=== PATIENT | male | born 1955 | race Caucasian/White ===

== ENCOUNTER 2017-03-27 08:58 | Emergency (ER) | payer BC ==
[2017-03-27] MEDS ORDERED: DIAZEPAM 5 MG TAB PO STA (09:21)
[2017-03-27] MEDS ORDERED: KETOROLAC 60 MG/2 ML VIAL IM STA (09:21)
[2017-03-27] MEDS ORDERED: HYDROcodone/APAP 5-325MG 1 EACH TAB PO STA (09:21)
--- NOTE | 2017-03-27 09:24 | ED ---
Back Pain HPI - General Chief Complaint: Back Pain/Injury Stated Complaint: back pain Time Seen by Provider: 03/27/17 09:06 Source: patient, RN notes reviewed Limitations: no limitations - History of Present Illness Initial Comments: Patient is a 61-year-old male presents emergency room for evaluation of low back pain. Patient states he used to have a history of chronic low back pain. Patient states he hasn't seen his back doctor in 4 years. Patient states on Friday he bent down to tow picker his 20 pound cat and felt a pop in his lower back. Patient states he began having pain ever since. Patient states been taking Excedrin with no relief of symptoms. Patient states he could not get an appointment with his back doctor yesterday. Patient states he is still continuing to have pain so he thought he should be evaluated. Patient states he is having pain in his mid lower back. Patient states the pain radiates down both legs. Patient denies saddle anesthesia. Patient denies paresthesias. Patient denies urinary or fecal incontinence. - Related Data Home Medications Medication Instructions Recorded Confirmed Albuterol Inhaler [Ventolin Hfa 1 - 2 puff INHALATION RT-Q6H PRN 03/27/17 Inhaler] Montelukast Sodium [Singulair] 10 mg PO DAILY 03/27/17 03/27/17 Multivitamins, Thera [Multivitamin 1 tab PO DAILY 03/27/17 03/27/17 (formulary)] Previous Rx's Medication Instructions Recorded Diazepam [Valium] 5 mg PO BID PRN #10 tab 03/27/17 HYDROcodone/APAP 5-325MG [[place] 1 tab PO Q6HR PRN #12 tab 03/27/17 5-325] predniSONE 50 mg PO DAILY #4 tab 03/27/17 Allergies Allergy/AdvReac Type Severity Reaction Status Date / Time Penicillins Allergy Unknown Verified 03/27/17 09:22 Review of Systems ROS Statement: Those systems with pertinent positive or pertinent negative responses have been documented in the HPI. ROS Other: All systems not noted in ROS Statement are negative. Past Medical History Past Medical History: Asthma Additional Past Medical History / Comment(s): back pain, kidney stones History of Any Multi-Drug Resistant Organisms: None Reported Additional Past Surgical History / Comment(s): kidney stone removal Past Psychological History: No Psychological Hx Reported Smoking Status: Former smoker Past Alcohol Use History: Occasional Past Drug Use History: None Reported General Exam - General Exam Comments Initial Comments: Standing up in exam room, uncomfortable secondary to pain. Limitations: no limitations General appearance: alert, in no apparent distress Head exam: Present: atraumatic, normocephalic, normal inspection Eye exam: Present: normal appearance ENT exam: Present: normal exam Neck exam: Present: normal inspection Respiratory exam: Present: normal lung sounds bilaterally. Absent: respiratory distress Cardiovascular Exam: Present: regular rate, normal rhythm, normal heart sounds Back exam: Present: normal inspection, vertebral tenderness (Lumbosacral spine) Neurological exam: Present: alert, oriented X3, CN II-XII intact, normal gait Psychiatric exam: Present: normal affect, normal mood Skin exam: Present: warm, dry, intact, normal color. Absent: rash Course Vital Signs 03/27/17 03/27/17 08:59 11:05 Temperature 98.0 F 98.2 F Pulse Rate 90 99 Respiratory 20 16 Rate Blood Pressure 138/77 149/98 O2 Sat by Pulse 99 96 Oximetry Medical Decision Making - Medical Decision Making Patient is a 61-year-old male presents emergency room for evaluation of lower back pain. X-ray shows no acute findings. Patient given pain medications and advised follow-up with primary care provider for possible MRI if symptoms are not improving. Patient has no neuro deficits. Patient states he understands everything that was discussed with him. Return parameters discussed. Case discussed Dr. Chowdhury. - Radiology Data Radiology results: report reviewed, image reviewed Disposition Clinical Impression: Acute low back pain Disposition: HOME SELF-CARE Condition: Good Instructions: Acute Low Back Pain (ED) Additional Instructions: Begin taking prednisone tomorrow. Take pain medications as needed for pain. Warm moist heat. Please follow up with primary care provider or logging specialist for further evaluation. If any new symptom arises or symptoms worsen , return to ER as soon as possible. Prescriptions: HYDROcodone/APAP 5-325MG [[place] 5-325] 1 tab PO Q6HR PRN #12 tab PRN Reason: Pain Diazepam [Valium] 5 mg PO BID PRN #10 tab PRN Reason: Pain predniSONE 50 mg PO DAILY #4 tab Referrals: None,Stated [REFERRING] - 1-2 days Time of Disposition: 10:31
--- NOTE | 2017-03-27 10:13 | XR ---
EXAMINATION TYPE: XR lumbosacral spine min 4V DATE OF EXAM ORDERED: 03/27/2017 HISTORY: Pain. COMPARISON: None. FINDINGS: There is mild wedging of the T1 vertebral body which appears chronic. Vertebral body heigh t and alignment otherwise maintained. There is no spondylolysis or spondylolisthesis. Disc spaces are well-maintained with the exception of L1 to. There is mild hypertrophic spondylosis at L1-2 and L2-3 . The facets are reasonably well-maintained. The pedicles are intact. IMPRESSION: 1. NO ACUTE OSSEOUS LESION. 2. MINIMAL DEGENERATIVE CHANGE. 3. MILD WEDGING OF THE T1 VERTEBRAL BODY WHICH APPEARS CHRONIC.
[2017-03-27] MEDS ORDERED: methylPREDNISolone SOD SUCCI 125 MG/2 ML VIAL IM ONE (10:37)
[2017-03-27 11:06] VITALS: BP 149/98; PULSE 99; RESP 16; TEMP 98.2
== END 2017-03-27 11:15 | disposition home or self-care (01) ==
LOC: EC 08:58
DX: M54.5 Low back pain (principal); M79.604 Pain in right leg; M79.605 Pain in left leg; J45.909 Unspecified asthma, uncomplicated; Z87.891 Personal history of nicotine dependence; Z79.899 Other long term (current) drug therapy; Z88.0 Allergy status to penicillin; X50.9XXA Other and unspecified overexertion or strenuous movements or postures, initial encounter; Y93.89 Activity, other specified
CPT/HCPCS: 72110; 99283; 96372 ×2; J2930; J1885

== ENCOUNTER 2019-03-10 10:04 | Day surgery (SDC) | payer BC ==
[2019-03-08 12:16] VITALS: BMI 23.7
[~2019-03-10 10:04] MED LIST: LACTATED RINGERS 1,000 ML IV SCH
[2019-03-10 10:27] VITALS: TEMP 96
[2019-03-10] MEDS ORDERED: LIDOCAINE 1% 20 ML VIAL (10MG/ML) FOR IV START INTRADERMA ONE (10:34)
--- NOTE | 2019-03-10 10:54 | P.GSHP ---
History of Present Illness H&P Date: 03/10/19 CHIEF COMPLAINT: Colon screen HISTORY OF PRESENT ILLNESS: The patient is a 63-year-old male who presents for colon screen. Lower endoscopy was offered for further evaluation and management. PAST MEDICAL HISTORY: Please see list. PAST SURGICAL HISTORY: Please see list. MEDICATIONS: Please see list. ALLERGIES: Please see list. SOCIAL HISTORY: No illicit drug use FAMILY HISTORY: No reports of Crohn disease or ulcerative colitis. REVIEW OF ORGAN SYSTEMS: CONSTITUTIONAL: No reports of fevers or chills. PHYSICAL EXAM: VITAL SIGNS: Stable GENERAL: Well-developed pleasant in no acute distress. HEENT: No scleral icterus. Extraocular movements grossly intact. Moist buccal mucosa. NECK: Supple without lymphadenopathy. CHEST: Unlabored respirations. Equal bilateral excursions. CARDIOVASCULAR: Regular rate and rhythm. Distal 2+ pulses. ABDOMEN: Soft, nontender, nondistended. MUSCULOSKELETAL: No clubbing, cyanosis, or edema. ASSESSMENT: 1. Colon screen. PLAN: 1. Recommend proceeding with a lower endoscopy Past Medical History Past Medical History: Asthma Additional Past Medical History / Comment(s): back pain, kidney stones, History of Any Multi-Drug Resistant Organisms: None Reported Additional Past Surgical History / Comment(s): kidney stone removal Past Anesthesia/Blood Transfusion Reactions: No Reported Reaction Smoking Status: Former smoker - Past Family History Father Family Medical History: Cancer Additional Family Medical History / Comment(s): STOMACH CANCER Mother Family Medical History: Cancer Additional Family Medical History / Comment(s): LIVER CANCER Medications and Allergies Home Medications Medication Instructions Recorded Confirmed Type Montelukast Sodium [Singulair] 10 mg PO DAILY 03/27/17 03/10/19 History Multivitamins, Thera [Multivitamin 1 tab PO DAILY 03/27/17 03/08/19 History (formulary)] Budesonide-Formot 160-4.5 Mcg 2 puff INHALATION DAILY 03/08/19 03/08/19 History [Symbicort 160-4.5 Mcg Inhaler] Allergies Allergy/AdvReac Type Severity Reaction Status Date / Time Penicillins Allergy Unknown Verified 03/08/19 11:51 Childhood Surgical - Exam Vital Signs Temp Pulse Resp BP Pulse Ox 96 F L 96 18 138/83 98 03/10/19 10:26 03/10/19 10:26 03/10/19 10:26 03/10/19 10:26 03/10/19 10:26
[2019-03-10] MEDS ORDERED: PROPOFOL 10 MG/ML 20 ML VIAL IV ONE (11:36)
--- NOTE | 2019-03-10 11:58 | P.PCN ---
Date of Procedure: 03/10/19 Description of Procedure: PREOPERATIVE DIAGNOSIS: Colonoscopy screening, first POSTOPERATIVE DIAGNOSIS: Colonoscopy screening, first Diverticulosis, scattered. External hemorrhoids, grade 2 OPERATION: Colonoscopy to the ileocecal valve and appendiceal orifice. SURGEON: Chrissy Smith MD. ANESTHESIA: MAC. INDICATIONS: The patient is a 63-year-old male who presents for colonoscopy screening. This is his first screening. Benefits and risks were described and informed consent was obtained. DESCRIPTION OF PROCEDURE: The patient had undergone Gatorade, MiraLAX and Dulcolax prep. He had been brought into the operating room and laid in the left lateral decubitus position. After adequate intravenous sedation, the rectum was examined with 2% lidocaine jelly. No external hemorrhoids were encountered. The rectal tone was within normal limits. No lesions were palpated in the rectal vault. The prostate was smooth without abnormalities. An Olympus colonoscope was advanced until the ileocecal valve and appendiceal orifice were clearly viewed. The prep was fair. The scope was removed with visualization of each mucosal fold. Scattered diverticulosis was encountered. No colonic polyps were found. No evidence of focal colitis was found. Retroflexion of the scope demonstrated grade 2 internal hemorrhoids without active bleeding or inflammation. The colon was desufflated. The patient had tolerated the procedure well. Withdrawal time was over 6 minutes. FINDINGS: Aronchick preparation quality scale 2 (1-5) Internal hemorrhoids, grade 2 External prolapsed hemorrhoids, grade 2 No arteriovenous malformations. No adenomatous polyps. No focal colitis. Sigmoid diverticulosis RECOMMENDATIONS: Lower endoscopy in 10 years, 2028 Plan - Discharge Summary Discharge Rx Participant: No New Discharge Prescriptions: No Action Multivitamins, Thera [Multivitamin (formulary)] 1 tab PO DAILY Montelukast Sodium [Singulair] 10 mg PO DAILY Budesonide-Formot 160-4.5 Mcg [Symbicort 160-4.5 Mcg Inhaler] 2 puff INHALATION DAILY Discharge Medication List Montelukast Sodium [Singulair] 10 mg PO DAILY 03/27/17 [History] Multivitamins, Thera [Multivitamin (formulary)] 1 tab PO DAILY 03/27/17 [His tory] Budesonide-Formot 160-4.5 Mcg [Symbicort 160-4.5 Mcg Inhaler] 2 puff INHALATION DAILY 03/08/19 [History] Follow up Appointment(s)/Referral(s): Chrissy Smith MD [STAFF PHYSICIAN] - 2 Weeks Patient Instructions/Handouts: Diverticulosis Diet (GEN), Diverticulosis (ED) Activity/Diet/Wound Care/Special Instructions: Repeat colonoscopy in 10 years or [place] Discharge Disposition: HOME SELF-CARE
[2019-03-10 12:04] VITALS: RESP 16
[2019-03-10 12:16] VITALS: BP 137/87
[2019-03-10 12:18] VITALS: PULSE 71
== END 2019-03-10 12:26 | disposition home or self-care (01) ==
LOC: ORWHC2ENDO 10:04
PROVIDERS: ATTEND Surgery Plastic and Reconstructive Surgery
DX: Z12.11 Encounter for screening for malignant neoplasm of colon (principal); J45.909 Unspecified asthma, uncomplicated; K64.4 Residual hemorrhoidal skin tags; K64.8 Other hemorrhoids; Z87.442 Personal history of urinary calculi; Z87.891 Personal history of nicotine dependence; Z88.0 Allergy status to penicillin; Z79.51 Long term (current) use of inhaled steroids; Z79.899 Other long term (current) drug therapy; K57.30 Diverticulosis of large intestine without perforation or abscess without bleeding
CPT/HCPCS: J2704; G0121

== ENCOUNTER → 2020-07-14 | Outpatient (CLI) | payer BC ==
--- NOTE | 2020-07-14 17:37 | XR ---
EXAMINATION TYPE: XR chest 2V DATE OF EXAM: 07/14/2020 COMPARISON: NONE TECHNIQUE: PA and lateral views submitted. HISTORY: Pain FINDINGS: The lungs are clear and there is no pneumothorax, pleural effusion, or focal pneumonia. Heart size normal. No overt failure. IMPRESSION: 1. No acute process.
--- NOTE | 2020-07-14 17:39 | XR ---
EXAMINATION TYPE: XR Hip Bilateral Complete DATE OF EXAM: 07/14/2020 COMPARISON: NONE HISTORY: Pain TECHNIQUE: 2 views submitted FINDINGS: There is no evidence of erosive change or acute fracture. Diffuse osteopenia. Moderate concentric tracy rowing the joint space. Hypertrophic change of the acetabulum. No acute fracture or dislocation. IMPRESSION: 1. Arthropathy correlate for femoral acetabular impingement.
--- NOTE | 2020-07-14 17:43 | XR ---
EXAM TYPE: LUMBAR SPINE X RAY SERIES COMPARISON: 07/14/2020 HISTORY: Pain TECHNIQUE: 4 views are submitted. FINDINGS: Alignment is anatomic. The pedicles are intact. The transverse processes are intact. There is no s pondylolysis or spondylolisthesis. Diffuse osteopenia noted. Multilevel hypertrophic and degenerativ e changes seen. Slight retrolisthesis of L4 relative to L5. 5 mm lower pole right renal calculus susp ected. IMPRESSION: 1. Multilevel hypertrophic and degenerative change similar to the prior exam. Retrolisthesis of L4 re lative to L5 stable. 2. Correlate for right renal calculus..
== END | disposition home or self-care (01) ==
LOC: RAD 15:32
PROVIDERS: ATTEND Family Medicine
DX: M43.16 Spondylolisthesis, lumbar region (principal); M47.817 Spondylosis without myelopathy or radiculopathy, lumbosacral region; M16.0 Bilateral primary osteoarthritis of hip; R05 Cough
CPT/HCPCS: 71046; 72110; 73521

== ENCOUNTER → 2020-08-02 | Outpatient (CLI) | payer BC ==
--- NOTE | 2020-08-02 09:38 | CT ---
EXAMINATION TYPE: CT sinus wo con DATE OF EXAM: 08/02/2020 COMPARISON: NONE HISTORY: Chronic sinusitis and bilateral nasal polyps per order. Nasal blockage for [address] DLP: 602 mGycm. Automated Exposure Control for Dose Reduction was Utilized. TECHNIQUE: CT scan of the sinuses is performed without contrast, axial images are obtained, coronal r eformatted images are also reviewed. FINDINGS: Moderate size air-fluid level left maxillary sinus. Moderate mucosal thickening in the righ t maxillary sinus with some hyperdense fluid material. Small to moderate-sized air-fluid level right sphenoid sinus. Completely opacified left sphenoid sinu s with some medial wall thickening and sclerosis. Nearly completely opacified bilateral ethmoid sinuses without bony destruction. Nearly completely opacified right frontal sinus with hyperdense material. Mild to moderate mucosal th ickening left frontal sinus with patchy fluid signal. Hyperdense material likely reflects chronic retained secretions, fungal infection felt less likely. The ostiomeatal complex is occluded bilaterally. Visualized portion of mastoid air cells show no abnormal opacification. The globes are intact bilate rally. IMPRESSION: Significant acute on chronic paranasal pansinusitis as detailed above.
== END | disposition home or self-care (01) ==
LOC: RADCTMAIN 09:10
PROVIDERS: ATTEND Otolaryngology
DX: J01.40 Acute pansinusitis, unspecified (principal); J32.4 Chronic pansinusitis; Z88.0 Allergy status to penicillin
CPT/HCPCS: 70486

== ENCOUNTER 2020-09-13 06:15 | Day surgery (SDC) | payer BC ==
[2020-09-12 09:02] VITALS: BMI 23.1
[~2020-09-13 06:15] MED LIST changes: +CLINDAMYCIN 600 MG in DEXTROSE 5% IN WATER 50 ML IVPB PRN; +DEXAMETHASONE SOD PHOSPHATE 4 MG/ML 1 ML VIAL IV ONE; +DEXAMETHASONE SOD PHOSPHATE 4 MG/ML 1 ML VIAL IV PRN; +FAMOTIDINE 20 MG/2 ML VIAL IV PRN; +ONDANSETRON 4 MG/2 ML VIAL IVP ONE; +ONDANSETRON 4 MG/2 ML VIAL IVP PRN
[2020-09-13] MEDS: OXYMETAZOLINE 0.05% NASL SPRAY 1 SPRAY BOTTLE NASAL PRN ×5 (06:50→07:12)
[2020-09-13 07:02] LABS: Glucose,Whole Blood 90 mg/dL (75-99)
[2020-09-13] MEDS ORDERED: HYDROCORTISONE SUCCINATE 100 MG/2 ML VIAL IVP ONE (07:14)
[2020-09-13] MEDS ORDERED: MIDAZOLAM 2 MG/2 ML VIAL IVP ONE (07:18)
[2020-09-13] MEDS ORDERED: DEXAMETHASONE SOD PHOSPHATE 10 MG/ML 1 ML VIAL ONE (07:21)
[2020-09-13] MEDS ORDERED: SUCCINYLCHOLINE CHLORIDE VIAL 200 MG/10 ML VIAL IV ONE (07:21)
[2020-09-13] MEDS ORDERED: LIDOCAINE 1% INJ 10MG/ML (20 ML MDV) ONE (07:21)
[2020-09-13] MEDS ORDERED: PROPOFOL 10 MG/ML 20 ML VIAL IV ONE (07:21)
[2020-09-13] MEDS ORDERED: fentaNYL (PF) 50 MCG/ML 2 ML AMP ONE (07:21)
[2020-09-13] MEDS ORDERED: MIDAZOLAM 2 MG/2 ML VIAL ONE (07:21)
[2020-09-13] MEDS ORDERED: LIDOCAINE 1%-EPI 1:100,000 20 ML VIAL SQ ONE ×2 (07:49→08:33)
[2020-09-13] MEDS ORDERED: BACITRACIN ZINC 500 UNIT/GM OINT 28.4 GM TUBE TOPICAL ONE (08:39)
--- NOTE | 2020-09-13 08:45 | P.OP ---
Date of Procedure: 09/13/20 Preoperative Diagnosis: Deviated nasal septum Inferior turbinate hypertrophy Chronic sinusitis Sinonasal polyposis Postoperative Diagnosis: Same Procedure(s) Performed: Septum plasty Outfracture and submucous resection inferior turbinates Bilateral endoscopic sinus surgery including bilateral maxillary antrostomy with removal of tissue from maxillary sinuses bilateral anterior and posterior ethmoidectomy,, bilateral frontal sinusotomy and sphenoidotomy all with exploration and removal of tissue Anesthesia: PIERRE Surgeon: Mark Guevara Estimated Blood Loss (ml): 10 Pathology: other (Nasal septal bone and cartilage sinus contents) Condition: stable Disposition: PACU Indications for Procedure: This 65-year-old white male who has chronic nasal airway obstruction and anosmia with chronic sinusitis and polyps noted on physical exam and on CT Operative Findings: Nasoseptal deviation with inferior turbinate hypertrophy bilaterally. Diffuse sinonasal polyposis throughout the maxillary and ethmoid sinuses with milder polyps in the frontal and sphenoid sinuses Description of Procedure: The patient was brought into the operative suite and placed in a supine position. The patient underwent induction of general anesthesia with oral endotracheal intubation without difficulty. The patient was prepped and draped in the usual aseptic fashion with the orbits in the operating field for monitoring to the case and the computed tomography scan was on the computer screen for review throughout the case. 1% lidocaine with 1 :100,000 epinephrine was infused submucosally into both sides of the nasal septum as well as the lateral nasal wall and anterior tips of the middle turbinates. While this was taking vasoconstrictive effect the inferior turbinates were infractured with [place] elevator and partial submucous resection of the inferior turbinates was performed with a portion of the submucosal soft tissue and the inferior turbinate bone removed with Coblation device. The inferior turbinates were then outfractured with the [place] elevator. A left hemitransfixion incision was then made with the mucoperichondrial and mucoperiosteal flap on the left elevated. The bony cartilaginous junction was disarticulated and the mucoperiosteal flap on the right was elevated. Bony nasal septal deformities were removed with Kaitlynn forceps and an inferior cartilaginous strip was removed leaving a full 1.5 cm caudal strut. Checking intranasally this corrected the nasoseptal deformities and the hemitransfixion incision was closed with a running 4-0 chromic suture. Full 0 endoscopic examination is performed bilaterally. Beginning on the left, the middle turbinate was medialized. The maxillary ostium was located with a ballpoint probe and an infundibulotomy was performed followed by uncinectomy. Gross polyps were debrided with the microdebrider .The maxillary antrostomy was enlarged at the expense of the anterior and posterior fontanelle taking care anteriorly not to injure the lacrimal bone. The maxillary sinus was evaluated with 30 and 70 endoscope .[Abnormal appearing tissue was removed from the maxillary sinus with microdebrider and giraffe forceps.]. Anterior and posterior ethmoidectomy were then performed from anterior to posterior to the level of the skull base. The roof of the anterior ethmoid air cells were then cleaned from posterior to anterior using up-biting Blakesley forceps. Frontal sinusotomy of the frontal sinus was then performed with up-biting Blakesley forceps curved suction were used. The frontal sinus was then explored with 30 endoscope.[Abnormal tissue was removed from the frontal sinus including polyps]. Sphenoidotomy was then performed with straight suction and straight Blakesley forceps. The sphenoid sinus was then explored with 0 endoscope.[Abnormal tissue was removed from the sphenoid sinus occluding polyps]. Attention was then turned to the right where the procedures were followed as they had been on the left. [Standard and firm Nasopore nasal dressing was placed in the middle meatus bilaterally under direct visualization]. Bilateral Teresa airway splints coated with bacitracin ointment were placed and sutured transseptally with a 4-0 nylon suture. The patient was suctioned in oral gastric fashion and was allowed to emerge from general anesthesia having tolerated procedure well and was extubated in the operating suite and transferred to the postoperative recovery area in satisfactory condition.
[2020-09-13] MEDS: LABETALOL SYRINGE 5 MG/ML IVP ONE ×2 (08:55→09:06)
[2020-09-13 08:58] VITALS: TEMP 97.6
[2020-09-13] MEDS: HYDROmorphone 0.5 MG/0.5 ML SYRINGE IVP PRN ×2 (09:14→09:36)
[2020-09-13] MEDS ORDERED: LACTATED RINGERS 1,000 ML IV ONE (09:17)
[2020-09-13 09:33] VITALS: RESP 16
[2020-09-13] MEDS ORDERED: HYDROcodone/APAP 5-325MG 1 EACH TAB ONE (10:36)
[2020-09-13] MEDS ORDERED: HYDROcodone/APAP 5-325MG 1 EACH TAB PO ONE (10:45)
[2020-09-13 11:40] VITALS: BP 138/75; PULSE 63
== END 2020-09-13 11:41 | disposition home or self-care (01) ==
LOC: OR 06:15
PROVIDERS: ATTEND Otolaryngology
DX: J32.9 Chronic sinusitis, unspecified (principal); J34.2 Deviated nasal septum; J34.3 Hypertrophy of nasal turbinates; J33.8 Other polyp of sinus; J45.909 Unspecified asthma, uncomplicated; Z88.0 Allergy status to penicillin; Z79.899 Other long term (current) drug therapy; Z79.51 Long term (current) use of inhaled steroids; Z87.442 Personal history of urinary calculi; Z79.52 Long term (current) use of systemic steroids; Z98.890 Other specified postprocedural states; Z87.891 Personal history of nicotine dependence; Z82.61 Family history of arthritis; Z82.5 Family history of asthma and other chronic lower respiratory diseases
CPT/HCPCS: 88305; 88300; 30520; 30802; 31267; 31259; 31253; J2250; J0330; J1100 ×2; J1720; J2405; J2001; J3010; J2704; J1170

== ENCOUNTER → 2021-08-03 | Outpatient (CLI) | payer BC ==
--- NOTE | 2021-08-03 12:54 | XR ---
EXAMINATION TYPE: XR chest 2V DATE OF EXAM: 08/03/2021 COMPARISON: 07/14/2020 INDICATION: Bronchitis TECHNIQUE: Frontal and lateral views of the chest are obtained. FINDINGS: The heart size is normal. The pulmonary vasculature is normal. The lungs are clear. No peribronchial thickening is evident. No suspicious consolidations or infiltr ates. IMPRESSION: 1. No acute pulmonary process.
== END | disposition home or self-care (01) ==
LOC: RADXRMAIN 11:14
PROVIDERS: ATTEND Nurse Practitioner
DX: J20.9 Acute bronchitis, unspecified (principal)
CPT/HCPCS: 71046

== ENCOUNTER → 2021-11-13 | Outpatient (CLI) | payer OTHER ==
--- NOTE | 2021-11-13 14:20 | XR ---
EXAMINATION TYPE: XR chest 2V DATE OF EXAM: 11/13/2021 COMPARISON: Chest x-ray 08/03/2021 HISTORY: R05.3 TECHNIQUE: Frontal and lateral views of the chest are obtained. FINDINGS: There is no focal air space opacity, pleural effusion, or pneumothorax seen. The cardiac silhouette size is within normal limits. There is eventration of the right hemidiaphragm, right hemid iaphragm remains elevated. The osseous structures are intact. IMPRESSION: No acute cardiopulmonary process.
== END | disposition home or self-care (01) ==
LOC: RADXRMAIN 13:22
PROVIDERS: ATTEND Nurse Practitioner Family
DX: R05.3 Chronic cough (principal)
CPT/HCPCS: 71046

== ENCOUNTER → 2022-02-14 | Outpatient (CLI) | payer OTHER ==
--- NOTE | 2022-02-14 10:19 | CT ---
EXAMINATION TYPE: CT chest abdomen w con DATE OF EXAM: 02/14/2022 COMPARISON: X-ray dated 11/13/2021 HISTORY: OTHER CONGENITAL MALFORMATIONS OF DIAPHRAGM CT DLP: 1236 mGycm. Automated Exposure Control for Dose Reduction was Utilized. CONTRAST: CT scan of the thorax, abdomen and pelvis is performed with IV Contrast, patient injected with 100 mL of Isovue 300. FINDINGS: LUNGS: 5.5 mm groundglass nodule is seen at the posterior aspect of the right upper lobe with 4 mm no dule at the lateral aspect of the right lung base. Minimal infiltration is seen in the right lower lo be (image #31, series 4). Slight nodularity seen along the transverse fissure. 3 mm pleural-based nod ule in the middle lobe. Grossly unremarkable lungs otherwise. Patent trachea and main bronchi. No ple ural effusion. MEDIASTINUM: Scattered subcentimeter hilar and mediastinal lymph nodes. No pathologically enlarged ly mph nodes in the chest. No gross cardiomegaly. Bovine aortic arch. Patent major mediastinal vessels. No pericardial effusion. OTHER: Tiny bilateral gynecomastia changes. No aggressive bone lesion. Focal bulge of the medial asp ect of the left hemidiaphragm posteriorly without nicole herniation of fat into the chest. This could progress to a diaphragmatic hernia. LIVER/GB: Questionable hepatic steatosis. 11 mm hypodense area is seen at the inferior aspect of the right hepatic lobe, incompletely characterized by this CT scan. A smaller hypodensity seen in the lef t hepatic lobe. No other definite hepatic focal lesion. Questionable gallbladder sludge versus faint calculi. PANCREAS: No significant abnormality is seen. SPLEEN: No significant abnormality is seen. ADRENALS: No significant abnormality is seen. KIDNEYS: Scattered bilateral nonobstructing renal calculi measuring up to 5 mm at the lower pole of r ight kidney. Tiny left lower pole renal cyst. Unremarkable kidneys otherwise. No hydroureter or hydro nephrosis. BOWEL: Very small sliding hiatal hernia, otherwise unremarkable stomach, duodenum and visualized sma ll bowel. Fecal loading of the visualized portion of the colon with scattered colonic diverticulosis. LYMPH NODES: No greater than 1 cm abdominal or pelvic lymph nodes are appreciated. OSSEOUS STRUCTURES: Degenerative changes of the upper lumbar spine. OTHER: Scattered arterial atherosclerotic calcifications. No free abdominal fluid. IMPRESSION: Very small sliding hiatal hernia. Focal bulge of the medial aspect of the left hemidiaphragm posterio rly which could progress to a diaphragmatic hernia. Grossly unremarkable diaphragm otherwise. Scattered pulmonary nodules and other pulmonary changes as described above. Recommend precautionary f ollow-up CT scan in 3 months for reassessment. Few hepatic hypodensities, incompletely characterized and could represent more focal fat infiltration however other lesion cannot be excluded. Recommend further targeted ultrasound assessment. If inconc lusive, further MRI assessment can be considered. Other findings as described above.
== END | disposition home or self-care (01) ==
LOC: RADCTMAIN 07:18
PROVIDERS: ATTEND Family Medicine
DX: Q79.1 Other congenital malformations of diaphragm (principal)
CPT/HCPCS: 71260; 74160; Q9967

== ENCOUNTER → 2022-03-15 | Outpatient (CLI) | payer OTHER ==
--- NOTE | 2022-03-15 10:20 | US ---
EXAMINATION TYPE: US liver DATE OF EXAM: 03/15/2022 COMPARISON: CT 02/14/2022 CLINICAL HISTORY: K76.9 LIVER DISEASE, UNSPECIFIED. No prior surgery. CT showed liver abnormality EXAM MEASUREMENTS: Liver Length: 16.4 cm Gallbladder Wall: 0.1 cm CBD: 0.4 cm Right Kidney: 10.7 x 4.9 x 4.9 cm Pancreas: Obscured by bowel gas Liver: Echogenic and coarse in appearance. Unable to visualize CT abnormality Gallbladder: Mobile echogenic foci Evidence for sonographic Gottlieb's sign: neg CBD: wnl Right Kidney: Lower echogenic focus with shadow = 0.8 x 0.6 cm IMPRESSION: 1. Nonobstructing right renal stone. 2. Small gallbladder stones. 3. Ultrasound unable to visualized CT abnormality to correlate. Consider follow-up CT abdomen in 6 mo nths.
== END | disposition home or self-care (01) ==
LOC: RADUSWWP 07:31
PROVIDERS: ATTEND Family Medicine
DX: K76.9 Liver disease, unspecified (principal)
CPT/HCPCS: 76705

== ENCOUNTER 2022-06-06 08:52 | Emergency (ER) | payer MEDICARE ==
[2022-06-06] MEDS ORDERED: methylPREDNISolone SOD SUCCI 125 MG/2 ML VIAL IV STA (09:48)
[2022-06-06] MEDS ORDERED: ORPHENADRINE 30 MG/ML 2 ML VIAL IVP STA (09:48)
[2022-06-06] MEDS ORDERED: HYDROmorphone 0.5 MG/0.5 ML SYRINGE IVP STA (09:48)
[2022-06-06] MEDS ORDERED: KETOROLAC 15 MG/ML 1 ML VIAL IVP STA (09:48)
--- NOTE | 2022-06-06 09:57 | ED ---
Back Pain HPI - General Chief Complaint: Back Pain/Injury Stated Complaint: Back pain Time Seen by Provider: 06/06/22 09:30 Source: patient, RN notes reviewed Mode of arrival: ambulatory Limitations: no limitations - History of Present Illness Initial Comments: 67-year-old male presents emergency retching with severe low back pain. Patient states she has a history of back pain but states that this pain is much worse. He states is very active has called a few times a week for last several weeks states had no issues but states of recent he started having some back pain in his lumbar spine. He has seen ecchymosis in the past at [facility] in which he told he had degenerative changes of L3 through L5. He denies any bowel, bladder incontinence or retention. Denies any lower extremity paresthesias no lower extremity weakness or pain. - Related Data Home Medications Medication Instructions Recorded Confirmed Montelukast Sodium [Singulair] 10 mg PO DAILY 03/27/17 09/13/20 Multivitamins, Thera [Multivitamin 1 tab PO DAILY 03/27/17 09/13/20 (formulary)] Budesonide-Formot 160-4.5 Mcg 2 puff INHALATION BID 03/08/19 09/13/20 [Symbicort 160-4.5 Mcg Inhaler] Albuterol Inhaler [Ventolin Hfa 2 puff INHALATION RT-QID PRN 09/12/20 09/13/20 Inhaler] Cephalexin [Keflex] 500 mg PO Q6HR 09/12/20 09/13/20 predniSONE [Deltasone] 40 mg PO DIRECTED 09/12/20 09/13/20 Previous Rx's Medication Instructions Recorded Cyclobenzaprine [Flexeril] 10 mg PO TID PRN #15 tab 06/06/22 HYDROcodone/APAP 5-325MG [Mineral 5] 1 each PO Q6HR PRN #12 tab 06/06/22 Ibuprofen [Motrin] 600 mg PO Q8HR PRN #20 tab 06/06/22 predniSONE 50 mg PO DAILY #5 tab 06/06/22 Allergies Allergy/AdvReac Type Severity Reaction Status Date / Time Penicillins Allergy Unknown Verified 06/06/22 09:16 Childhood Review of Systems ROS Statement: Those systems with pertinent positive or pertinent negative responses have been documented in the HPI. ROS Other: All systems not noted in ROS Statement are negative. Past Medical History Past Medical History: Asthma, Musculoskeletal Disorder Additional Past Medical History / Comment(s): hx. back pain, kidney stones, sinus problems History of Any Multi-Drug Resistant Organisms: None Reported Additional Past Surgical History / Comment(s): kidney stone removal Past Anesthesia/Blood Transfusion Reactions: No Reported Reaction Past Psychological History: No Psychological Hx Reported Smoking Status: Former smoker Past Alcohol Use History: None Reported Past Drug Use History: None Reported - Past Family History Father Family Medical History: Cancer Additional Family Medical History / Comment(s): STOMACH CANCER Mother Family Medical History: Cancer Additional Family Medical History / Comment(s): LIVER CANCER General Exam Limitations: no limitations General appearance: alert, in no apparent distress Head exam: Present: atraumatic, normocephalic, normal inspection Eye exam: Present: normal appearance, PERRL, EOMI. Absent: scleral icterus, conjunctival injection, periorbital swelling ENT exam: Present: normal exam, normal oropharynx, mucous membranes moist Neck exam: Present: normal inspection, full ROM. Absent: tenderness, meningismus, lymphadenopathy Respiratory exam: Present: normal lung sounds bilaterally. Absent: respiratory distress, wheezes, rales, rhonchi, stridor Cardiovascular Exam: Present: regular rate, normal rhythm, normal heart sounds. Absent: systolic murmur, diastolic murmur, rubs, gallop, clicks GI/Abdominal exam: Present: soft, normal bowel sounds. Absent: distended, tenderness, guarding, rebound, rigid Back exam: Present: full ROM, tenderness, paraspinal tenderness, vertebral tenderness. Absent: CVA tenderness (R), CVA tenderness (L) Neurological exam: Present: alert Skin exam: Present: warm, dry, intact, normal color. Absent: rash Course Vital Signs 06/06/22 06/06/22 06/06/22 09:12 09:51 10:38 Temperature 98 F 98.0 F 98.8 F Pulse Rate 18 L 69 66 Respiratory 18 16 16 Rate Blood Pressure 157/94 141/88 O2 Sat by Pulse 98 97 97 Oximetry 06/06/22 11:06 Temperature 98.7 F Pulse Rate 73 Respiratory 16 Rate Blood Pressure 157/95 O2 Sat by Pulse 99 Oximetry Medical Decision Making - Medical Decision Making 67-year-old presented for low back pain. Patient CT shows evidence of bulging disc L2-L3, L5-S1 patient has no red flag symptoms no radicular symptoms a leg weakness. Patient was provided pain control he is able walk to the bathroom. Patient be discharged on steroids, sweats, pain control patient being follow-up with orthopedic spine as he seen in the past Disposition Clinical Impression: Bulging of lumbar intervertebral disc Disposition: HOME SELF-CARE Condition: Stable Instructions (If sedation given, give patient instructions): Acute Low Back Pain (ED), Lumbar Disc Herniation (ED) Additional Instructions: Please return to the Emergency Department if symptoms worsen or any other concerns. Prescriptions: Cyclobenzaprine [Flexeril] 10 mg PO TID PRN #15 tab PRN Reason: Muscle Spasm Ibuprofen [Motrin] 600 mg PO Q8HR PRN #20 tab PRN Reason: Pain HYDROcodone/APAP 5-325MG [Mineral 5] 1 each PO Q6HR PRN #12 tab PRN Reason: Pain predniSONE 50 mg PO DAILY #5 tab Is patient prescribed a controlled substance at d/c from ED?: No Referrals: Nikhil Hazel MD [Primary Care Provider] - 1-2 days Time of Disposition: 11:59
[2022-06-06 10:04] VITALS: RESP 16
--- NOTE | 2022-06-06 11:11 | CT ---
EXAMINATION TYPE: CT lumbar spine wo con CT DLP: 983 mGycm, Automated exposure control for dose reduction was used. DATE OF EXAM: 06/06/2022 10:25 AM COMPARISON: CT chest abdomen pelvis 02/14/2022. CLINICAL INDICATION:Male, 67 years old with history of pain; PHH, TECHNIQUE: Multiple axial images were obtained from the midportion of T11 through the sacroiliac norbert nts. Soft tissue and bone windows in coronal and sagittal planes were obtained and reviewed. FINDINGS: Alignment: There are 5 lumbar type vertebral bodies within normal alignment. Bone: No evidence of fracture is identified. Discs: Mild multilevel degenerative disc disease. Multilevel Schmorl's nodes identified. T12-L1: No spinal canal or neural foraminal stenosis is identified. L1-L2: No spinal canal or neural foraminal stenosis is identified. L2-L3: Broad-based disc bulge with mild effacement of the anterior thecal sac. The neural foramen are patent bilaterally. L3-L4: No spinal canal or neural foraminal stenosis is identified. L4-L5: No spinal canal or neural foraminal stenosis is identified. L5-S1: Broad-based disc bulge with minimal effacement of anterior thecal sac. Mild right neural sandoval inal stenosis. The left neural foramen is patent. Other: Colonic diverticulosis without evidence for acute diverticulitis. Visualized appendix is withi n normal limits. Cholelithiasis. Nonobstructive bilateral renal calculi with largest on the right lacie suring up to 5 mm. IMPRESSION: 1. No evidence of fracture of the lumbar spine. 2. Mild multilevel degenerative disc disease. 3. Colonic diverticulosis without evidence for acute diverticulitis. 4. Cholelithiasis. 5. Nonobstructive bilateral renal calculi.
[2022-06-06 12:37] VITALS: BP 144/88; PULSE 78; TEMP 98.8
== END 2022-06-06 12:39 | disposition home or self-care (01) ==
LOC: EC 08:52
DX: M51.26 Other intervertebral disc displacement, lumbar region (principal); J45.909 Unspecified asthma, uncomplicated; Z87.891 Personal history of nicotine dependence; Z79.51 Long term (current) use of inhaled steroids; Z88.0 Allergy status to penicillin
CPT/HCPCS: 72131; 99284; 96374; 96375; J2360; J2930; J1885; J1170

== ENCOUNTER → 2024-01-15 | Outpatient (CLI) | payer MEDICARE ==
--- NOTE | 2024-01-15 12:22 | US ---
EXAMINATION TYPE: US Aorta Screening DATE OF EXAM: 01/15/2024 COMPARISON: CT CLINICAL INDICATION: Male, 68 years old with history of R10.2 PELVIC AND PERINEAL PAIN Z13.6; Pt stat es AAA screening TECHNIQUE: Multiple sonographic images of the abdominal aorta are obtained. FINDINGS: EXAM MEASUREMENTS: Abdominal Aorta: Proximal: 2.4 x 2.3 cm Mid: 1.8 x 1.9 cm Distal: 1.9 x 1.9 cm Bifurcation: Right Iliac: 1.3 x 1.5 cm Left Iliac: 1.4 x 1.4 cm [employer] NOTES: No evidence of AAA IMPRESSION: No evidence for abdominal aortic aneurysm
--- NOTE | 2024-01-15 12:23 | US ---
EXAMINATION TYPE: US pelvic limited DATE OF EXAM: 01/15/2024 COMPARISON: CT CLINICAL INDICATION: Male, 68 years old with history of R10.2 PELVIC AND PERINEAL PAIN Z13.6; Pt stat es lower pelvic pain TECHNIQUE: Male pelvis. Multiple lower pelvic images obtained without and with valsalva maneuvers- no evidence of hernia, f luid collections or masses in area of pain IMPRESSION: No abnormality seen.
== END | disposition home or self-care (01) ==
LOC: RADUSWWP 07:53
PROVIDERS: ATTEND Family Medicine
DX: R10.2 Pelvic and perineal pain (principal); Z13.6 Encounter for screening for cardiovascular disorders
CPT/HCPCS: 76706; 76857

== ENCOUNTER → 2024-06-08 | Outpatient (CLI) | payer MEDICARE ==
--- NOTE | 2024-06-08 13:19 | CT ---
EXAMINATION TYPE: CT brain wo con DATE OF EXAM: 06/08/2024 COMPARISON: None HISTORY: 69-year-old male R51.9 Headache, frontal, x 16 days TECHNIQUE: Examination was done in axial plane without intravenous contrast. Coronal and sagittal r econstructions performed. CT DLP: 1334 mGycm Automated exposure control for dose reduction was used. FINDINGS: There is no evidence of acute intracranial hemorrhage, acute ischemic changes, mass, mass-effect, or extra-axial fluid collection. There is no effacement of cerebral sulci or basal subarachnoid cister ns. There is no hydrocephalus. There is no midline shift. Butterfield-white matter distinction is preserv ed. There is severe mucosal thickening and opacification within the ethmoid air cells and left frontal si nus. Layering fluid right frontal sinus. Moderate mucosal thickening left maxillary sinus. Some layer ing fluid right sphenoid sinus as well. Some hyperdensity within the floor of the left maxillary sinu s and also within the left frontal sinus. Mastoid air cells well pneumatized. Orbits and globes are intact. IMPRESSION: 1. Background moderate to severe chronic paranasal sinus disease especially on the left. Some underly ing high density within the floor of the left maxillary sinus and left frontal sinus could represent inspissated mucus or superimposed aspergillus infection. Consider ENT referral especially if symptoma tic. 2. Air-fluid levels right frontal and right sphenoid sinuses may be seen with superimposed acute sinu sitis. 3. No acute intracranial abnormality seen.
== END | disposition home or self-care (01) ==
LOC: RADCTMAIN 12:38
PROVIDERS: ATTEND Family Medicine
DX: R51.9 Headache, unspecified
CPT/HCPCS: 70450